=== PATIENT | female | born 1995 | race Caucasian/White ===

== ENCOUNTER 2018-05-13 04:41 | Emergency (ER) | payer MEDICAID ==
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
== END 2018-05-13 06:10 | disposition home or self-care (01) ==
LOC: MW.ED 04:41
DX: S69.92XA Unspecified injury of left wrist, hand and finger(s), initial encounter (principal); Z88.8 Allergy status to other drugs, medicaments and biological substances; Y08.89XA Assault by other specified means, initial encounter
CPT/HCPCS: 73130-26-LT; 73130-LT; 99282; 99284-25